=== PATIENT | female | born 1995 | race Caucasian/White ===

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

== ENCOUNTER → 2017-01-18 | Outpatient (CLI) | payer BC | END | disposition home or self-care (01) | LOC: LABWHC1 17:26 | PROVIDERS: ATTEND Obstetrics & Gynecology | DX: Z34.02 Encounter for supervision of normal first pregnancy, second trimester (principal); Z67.90 Unspecified blood type, Rh positive; Z3A.00 Weeks of gestation of pregnancy not specified | CPT/HCPCS: 36415; 82105; 82677; 84702; 86336; 86850; 86900; 86901 ==

== ENCOUNTER 2017-03-09 23:00 | Emergency (ER) | payer BC ==
[2017-03-09] MEDS ORDERED: METOCLOPRAMIDE 5 MG/ML 2 ML VIAL IVP STA (23:23)
[2017-03-09] MEDS ORDERED: ACETAMINOPHEN TAB 325 MG TAB PO STA (23:24)
[2017-03-09] MEDS ORDERED: SODIUM CHLORIDE 0.9% 1,000 ML IV STA (23:33)
--- NOTE | 2017-03-09 23:41 | ED ---
General Adult HPI - General Chief complaint: Back Pain/Injury Stated complaint: back pain/24 weeks Time Seen by Provider: 03/09/17 23:10 Source: patient Mode of arrival: ambulatory Limitations: no limitations - History of Present Illness Initial comments: 21-year-old female patient presents to emergency department today for evaluation of right upper back pain. Patient is 24 weeks . She is . Patient states that she started to have sharp pain around her right shoulder blade yesterday, states that the pain has worsened today and now radiates down her spine with deep breath. Patient states that she also has upper respiratory symptoms including a cough with green sputum production that started a few days ago. Patient says that she has vomited several times today, states that she is occasionally able to keep down small amounts of water however has not been able to eat today. Patient denies any chest pain, dizziness, weakness, shortness of breath, abdominal pain, cramping, constipation , hematemesis, diarrhea, vaginal bleeding, vaginal discharge, hematuria, dysuria , urinary urgency, or urinary frequency. She states that she does have some intermittent bilateral flank pain. Patient was unaware that she had a fever, however was 102.7 F on presentation. - Related Data Home Medications Medication Instructions Recorded Confirmed Rjd-Iurs-Satwy Acid 1 cap PO DAILY 03/09/17 03/09/17 [-U Capsule (formulary)] Previous Rx's Medication Instructions Recorded Nitrofurantoin Monohyd/M-Cryst 100 mg PO Q12HR #14 cap 03/10/17 [Macrobid] Allergies Allergy/AdvReac Type Severity Reaction Status Date / Time No Known Allergies Allergy Verified 03/09/17 23:16 Review of Systems ROS Statement: Those systems with pertinent positive or pertinent negative responses have been documented in the HPI. ROS Other: All systems not noted in ROS Statement are negative. Past Medical History Past Medical History: No Reported History History of Any Multi-Drug Resistant Organisms: None Reported Past Surgical History: No Surgical Hx Reported Past Psychological History: Bipolar Smoking Status: Current every day smoker Past Alcohol Use History: None Reported Past Drug Use History: Marijuana General Exam - General Exam Comments Initial Comments: 21-year-old female patient presented to emergency department today for complaints of cough and right upper back pain. Patient did have a temperature of 102.7 on presentation. Patient has had upper respiratory symptoms for the last 2-3 days. Lab work was performed and did show white blood cell count of 15.8 with a neutrophil count of 14.0. Urine was cloudy, had 1+ protein, 4+ ketones, trace blood, positive nitrates, large amount of leukocyte esterase, 107 white blood cells, 11 squamous epithelial cells, moderate bacteria, and many urine mucus. Patient was given IV Rocephin here in the department, 2 L of normal saline. She was treated with Tylenol for fever. Patient was feeling much better prior to discharge. Vital signs improved. States that her back pain has improved as well. She will be discharged home with a prescription for Macrobid to continue treating the urinary tract infection. Did explain to patient that her back pain was most likely related to pleural pain from acute bronchitis, however given her status and pain in her back there is a possibility for pulmonary embolism. I did explain to rule this out patient would have to have a CT of the chest with contrast. Did explain risks versus benefits including exposure of radiation to the fetus. She refuses test at this time. She is instructed to follow up for repeat urinalysis once the antibiotics are complete to ensure clearance of infection. She is instructed to follow-up with her primary care physician for recheck in 1-2 days. She is instructed to return here immediately for any new, worsening, or concerning symptoms. Patient verbalizes understanding and agrees with this plan. Limitations: no limitations General appearance: alert, in no apparent distress Head exam: Present: atraumatic, normocephalic, normal inspection Eye exam: Present: normal appearance, PERRL, EOMI. Absent: scleral icterus, conjunctival injection, periorbital swelling ENT exam: Present: normal exam, normal oropharynx, mucous membranes moist, TM's normal bilaterally Neck exam: Present: normal inspection, full ROM. Absent: tenderness, meningismus, lymphadenopathy Respiratory exam: Present: normal lung sounds bilaterally. Absent: respiratory distress, wheezes, rales, rhonchi, stridor Cardiovascular Exam: Present: normal rhythm, tachycardia, normal heart sounds. Absent: regular rate, systolic murmur, diastolic murmur, rubs, gallop, clicks GI/Abdominal exam: Present: soft, normal bowel sounds, other (Gravid abdomen). Absent: distended, tenderness, guarding, rebound, rigid Extremities exam: Present: normal inspection, full ROM, normal capillary refill. Absent: tenderness, pedal edema, joint swelling, calf tenderness Back exam: Present: normal inspection. Absent: CVA tenderness (R), CVA tenderness (L) Neurological exam: Present: alert, oriented X3, CN II-XII intact Psychiatric exam: Present: normal affect, normal mood Skin exam: Present: warm, dry, intact, normal color. Absent: rash Course Vital Signs 03/09/17 03/10/17 23:04 01:08 Temperature 102.7 F H 97.4 F L Pulse Rate 130 H 92 Respiratory 22 16 Rate Blood Pressure 130/60 104/52 O2 Sat by Pulse 97 98 Oximetry Medical Decision Making - Lab Data Result diagrams: 03/09/17 23:39 03/09/17 23:39 Lab Results 03/09/17 03/09/17 03/09/17 Range/Units 23:39 23:39 23:39 WBC 15.8 H (4.0-11.0) k/uL RBC 4.02 (3.80-5.40) m/uL Hgb 12.3 (11.4-16.0) gm/dL Hct 36.2 (34.0-46.0) % MCV 90.1 (80.0-100.0) fL MCH 30.6 (25.0-35.0) pg MCHC 34.0 (31.0-37.0) g/dL RDW 13.7 (11.5-15.5) % Plt Count 261 (150-450) k/uL Neutrophils % 89 % Lymphocytes % 6 % Monocytes % 4 % Eosinophils % 0 % Basophils % 0 % Neutrophils # 14.0 H (1.3-7.7) k/uL Lymphocytes # 1.0 (1.0-4.8) k/uL Monocytes # 0.6 (0-1.0) k/uL Eosinophils # 0.0 (0-0.7) k/uL Basophils # 0.0 (0-0.2) k/uL Sodium 136 L (137-145) mmol/L Potassium 3.7 (3.5-5.1) mmol/L Chloride 104 (98-107) mmol/L Carbon Dioxide 20 L (22-30) mmol/L Anion Gap 12 mmol/L BUN 6 L (7-17) mg/dL Creatinine 0.50 L (0.52-1.04) mg/dL Est GFR (MDRD) Af Amer >60 (>60 ml/min/1.73 sqM) Est GFR (MDRD) Non-Af >60 (>60 ml/min/1.73 sqM) Glucose 89 (74-99) mg/dL Plasma Lactic Acid William 1.2 (0.7-2.0) mmol/L Calcium 9.3 (8.4-10.2) mg/dL Total Bilirubin 0.4 (0.2-1.3) mg/dL AST 17 (14-36) U/L ALT 24 (9-52) U/L Alkaline Phosphatase 116 (38-126) U/L Total Protein 7.1 (6.3-8.2) g/dL Albumin 4.0 (3.5-5.0) g/dL Amylase <30 L (30-110) U/L Lipase 54 (23-300) U/L Urine Color Urine Appearance (Clear) Urine pH (5.0-8.0) Ur Specific [place] (1.001-1.035) Urine Protein (Negative) Urine Glucose (UA) (Negative) Urine Ketones (Negative) Urine Blood (Negative) Urine Nitrite (Negative) Urine Bilirubin (Negative) Urine Urobilinogen (<2.0) mg/dL Ur Leukocyte Esterase (Negative) Urine RBC (0-5) /hpf Urine WBC (0-5) /hpf Ur Squamous Epith Cells (0-4) /hpf Urine Bacteria (None) /hpf Urine Mucus (None) /hpf 03/09/17 Range/Units 23:46 WBC (4.0-11.0) k/uL RBC (3.80-5.40) m/uL Hgb (11.4-16.0) gm/dL Hct (34.0-46.0) % MCV (80.0-100.0) fL MCH (25.0-35.0) pg MCHC (31.0-37.0) g/dL RDW (11.5-15.5) % Plt Count (150-450) k/uL Neutrophils % % Lymphocytes % % Monocytes % % Eosinophils % % Basophils % % Neutrophils # (1.3-7.7) k/uL Lymphocytes # (1.0-4.8) k/uL Monocytes # (0-1.0) k/uL Eosinophils # (0-0.7) k/uL Basophils # (0-0.2) k/uL Sodium (137-145) mmol/L Potassium (3.5-5.1) mmol/L Chloride (98-107) mmol/L Carbon Dioxide (22-30) mmol/L Anion Gap mmol/L BUN (7-17) mg/dL Creatinine (0.52-1.04) mg/dL Est GFR (MDRD) Af Amer (>60 ml/min/1.73 sqM) Est GFR (MDRD) Non-Af (>60 ml/min/1.73 sqM) Glucose (74-99) mg/dL Plasma Lactic Acid William (0.7-2.0) mmol/L Calcium (8.4-10.2) mg/dL Total Bilirubin (0.2-1.3) mg/dL AST (14-36) U/L ALT (9-52) U/L Alkaline Phosphatase (38-126) U/L Total Protein (6.3-8.2) g/dL Albumin (3.5-5.0) g/dL Amylase (30-110) U/L Lipase (23-300) U/L Urine Color Yellow Urine Appearance Cloudy H (Clear) Urine pH 6.5 (5.0-8.0) Ur Specific [place] 1.019 (1.001-1.035) Urine Protein 1+ H (Negative) Urine Glucose (UA) Negative (Negative) Urine Ketones 4+ H (Negative) Urine Blood Trace H (Negative) Urine Nitrite Positive H (Negative) Urine Bilirubin Negative (Negative) Urine Urobilinogen <2.0 (<2.0) mg/dL Ur Leukocyte Esterase Large H (Negative) Urine RBC 2 (0-5) /hpf Urine WBC 107 H (0-5) /hpf Ur Squamous Epith Cells 11 H (0-4) /hpf Urine Bacteria Moderate H (None) /hpf Urine Mucus Many H (None) /hpf Disposition Clinical Impression: Urinary tract infection during , Fever Disposition: HOME SELF-CARE Condition: Good Instructions: Acute Bronchitis (ED), Urinary Tract Infection in (ED) Additional Instructions: Increase fluids. Complete antibiotics in full. Follow-up with your primary care physician for recheck in 1-2 days. Have repeat urinalysis performed once antibiotics are complete to ensure clearance of infection. Return here immediately for any new, worsening, or concerning symptoms. Prescriptions: Nitrofurantoin Monohyd/M-Cryst [Macrobid] 100 mg PO Q12HR #14 cap Referrals: Maritza Mccartney MD [Primary Care Provider] - 1-2 days Time of Disposition: 01:58
[2017-03-10 00:11] LABS: Basophils % (A) 0 %; CH 31.9; CHCM 35.6; Eosinophils % (A) 0 %; HCT 36.2 % (34.0-46.0); HDW 2.41; HGB 12.3 gm/dL (11.4-16.0); Luc # (Auto) 0.19; Luc % (Auto) 1; Lymphocytes % (A) 6 %; MCH 30.6 pg (25.0-35.0); MCV 90.1 fL (80.0-100.0); Mean Platelet Volume 7.8; Monocytes # (A) 0.6 k/uL (0-1.0); Monocytes % (A) 4 %; Neutrophils % (A) 89 %; RBC 4.02 m/uL (3.80-5.40); RDW 13.7 % (11.5-15.5); WBC 15.8 k/uL (4.0-11.0); WBC (Perox) 15.19
--- NOTE | 2017-03-10 00:14 | XR ---
EXAM: XR Chest, 2 Views CLINICAL HISTORY: Reason: Pain TECHNIQUE: Frontal and lateral views of the chest. COMPARISON: No relevant prior studies available. FINDINGS: Lungs: Unremarkable. No consolidation. Pleural space: Unremarkable. No pneumothorax. Heart: Unremarkable. No cardiomegaly. Mediastinum: Unremarkable. Bones/joints: Unremarkable. IMPRESSION: Normal chest x-rays.
[2017-03-10 00:18] LABS: Appearance,Urine Cloudy (Clear); Bacteria,Urine Moderate /hpf; Bilirubin,Urine Negative (Negative); Glucose,Urine (UA) Negative (Negative); Ketones,Urine 4+ (Negative); Leukocyte Esterase,Urine Large (Negative); Mucus,Urine Many /hpf; Nitrite,Urine Positive (Negative); PH, Urine 6.5 (5.0-8.0); Particle Count 130391; Protein,Urine 1+ (Negative); RBC,Urine 2 /hpf (0-5); Specific Gravity,Urine 1.019 (1.001-1.035); Squamous Epithelial Cell,Urine 11 /hpf (0-4); UA Billing (MACRO vs. MICRO) MICRO; Urobilinogen,Urine <2.0 mg/dL (<2.0); WBC,Urine 107 /hpf (0-5)
[2017-03-10 00:21] LABS: ALT 24 U/L (9-52); AST 17 U/L (14-36); Alkaline Phosphatase 116 U/L (38-126); Amylase <30 U/L (30-110); Anion Gap 12 mmol/L; Blood Urea Nitrogen 6 mg/dL (7-17); Calcium 9.3 mg/dL (8.4-10.2); Carbon Dioxide 20 mmol/L (22-30); Chloride 104 mmol/L (98-107); Glucose 89 mg/dL (74-99); Non-African American GFR(MDRD) >60 (>60 ml/min/1.73 sqM); Potassium 3.7 mmol/L (3.5-5.1); Sodium 136 mmol/L (137-145); Total Bilirubin 0.4 mg/dL (0.2-1.3); Total Protein 7.1 g/dL (6.3-8.2)
[2017-03-10 01:09] VITALS: BP 104/52; PULSE 92; RESP 16; TEMP 97.4
[2017-03-10] MEDS ORDERED: SODIUM CHLORIDE 0.9% 1,000 ML IV ONE (02:18)
== END 2017-03-10 03:06 | disposition home or self-care (01) ==
LOC: EC 23:00
DX: O23.42 Unspecified infection of urinary tract in pregnancy, second trimester (principal); O99.89 Other specified diseases and conditions complicating pregnancy, childbirth and the puerperium; R05 Cough; O99.332 Smoking (tobacco) complicating pregnancy, second trimester; F17.200 Nicotine dependence, unspecified, uncomplicated; Z3A.24 24 weeks gestation of pregnancy; Z79.899 Other long term (current) drug therapy
CPT/HCPCS: 99284; 96365; 96375; 96361; 36415; 80053; 82150; 83605; 83690; 85025; 81001; 87040; 87086; 87077; 87186; 71020; J2765; J0696

== ENCOUNTER → 2017-04-09 | Outpatient (CLI) | payer BC, OTHER ==
[2017-04-09 14:17] LABS: CH 31.6; CHCM 33.7; HCT 34.6 % (34.0-46.0); HDW 2.48; HGB 11.5 gm/dL (11.4-16.0); MCH 31.3 pg (25.0-35.0); MCHC 33.2 g/dL (31.0-37.0); MCV 94.4 fL (80.0-100.0); Mean Platelet Volume 8.9; RBC 3.67 m/uL (3.80-5.40); RDW 14.3 % (11.5-15.5); WBC 15.4 k/uL (4.0-11.0)
== END | disposition home or self-care (01) ==
LOC: LABWHC1 12:55
PROVIDERS: ATTEND Obstetrics & Gynecology
DX: Z34.02 Encounter for supervision of normal first pregnancy, second trimester (principal)
CPT/HCPCS: 36415; 82950; 85027

== ENCOUNTER 2017-06-21 19:59 | Outpatient (CLI) | payer BC, OTHER ==
[2017-06-21 20:38] VITALS: BP 127/83; PULSE 83; RESP 16; TEMP 97.7
--- NOTE | 2017-07-04 06:14 | P.MSEPDOC ---
Presenting Problems - Arrival Data Date of Arrival on Unit: 06/21/17 Time of Arrival on Unit: 20:05 Mode of Transport: Wheelchair - Complaint OB-Reason for Admission/Chief Complaint: Possible Onset of Labor Medical History - Information : 1 Para: 0 Term: 0 : 0 Abortions: Spontaneous or Elective: 0 Number of Living Children: 0 - Gestational Age Gestational Age by SHAMIKA (wks/days): 40 Weeks and 1 Days - History Complications: Smoker, Hx. Substance Abuse Comment: Smoked weed up until a couple months ago. Review of Systems - Review of Systems Constitutional: No problems Breast: No problems ENT: No problems Cardiovascular: No problems Respiratory: No problems Gastrointestinal: No problems Genitourinary: No problems Musculoskeletal: No problems Neurological: No problems Skin: No problems Vital Signs - Temperature Temperature: 97.7 F Temperature Source: Oral - Pulse Pulse Oximetery Pulse Rate: 83 Pulse Assessment Method: Pulse Oximetry - Respirations Respiratory Rate: 16 O2 Sat by Pulse Oximetry: 97 - Blood Pressure Right Arm Sitting Blood Pressure: 127/83 Blood Pressure Mean: 97 Blood Pressure Source: Automatic Cuff Medical Screen Scoring (Pre) - Cervical Exam Dilation: 4-7 cm = 2 Effacement: More than 50% = 2 Membranes: Intact - Uterine Contractions Frequency: > or = 36 weeks =2 Duration: > 40 seconds = 2 Intensity: N/A - Maternal Vital Signs Maternal Temperature: N/A Maternal Blood Pressure: N/A Signs of Preeclampsia: N/A Maternal Respirations: N/A - Pain Assessment Pain Location and Character: Abdomen Pain Scale Used: Numeric (1 - 10) Pain Intensity: 4 Pain Description: *Acute, Squeezing Pain Radiation Location: none Pain Frequency: Intermittent Pain Duration Units: Minutes Pain Behavior: None Exhibited Pain Aggravating Factors: Contractions Non-Pharmacological Interventions: Emotional/Spiritual Support, Environmental Control, Reduce Environmental Stimuli - Maternal Trauma Maternal Trauma: N/A - Assessment Baseline FHR: 125 Heart Rate - NICHD Category: Category I (Normal) = 0 NST: Reactive Position: N/A Station: N/A - Total Score Total Score (Pre): 8 - Level of Risk Level of Risk: Low (0-5) Medical Screen Scoring (Post) - Cervical Exam Dilation: 4-7 cm = 2 Effacement: More than 50% = 2 Membranes: Intact - Uterine Contractions Frequency: > or = 36 weeks =2 Duration: > 40 seconds = 2 Intensity: N/A - Maternal Vital Signs Maternal Temperature: N/A Maternal Blood Pressure: N/A Signs of Preeclampsia: N/A Maternal Respirations: N/A - Pain Assessment Pain Location and Character: Abdomen Pain Scale Used: Numeric (1 - 10) Pain Intensity: 4 Pain Description: *Acute Pain Frequency: Intermittent Pain Duration Units: Minutes Pain Aggravating Factors: Contractions Non-Pharmacological Interventions: Emotional/Spiritual Support, Environmental Control, Reduce Environmental Stimuli - Maternal Trauma Maternal Trauma: N/A - Assessment Heart Rate: 120 Heart Rate - NICHD Category: Category I (Normal) = 0 NST: Reactive Position: N/A Station: N/A - Total Score Total Score (Post): 8 - Post Treatment Level of Risk Post Treatment Level of Risk: Medium (6-9) Physician Notification (Post) - Physician Notified Physician Notified Date: 06/21/17 Physician Notified Time: 21:20 Physician/Practitioner Notified:: Dr Rivas New Order Received: Yes Disposition - Disposition OB Disposition: Discharge to home, Written follow up instructions reviewed Discharge Date: 06/21/17 Discharge Time: 21:30 I agree with the RN Medical Screening Exam: Yes Risk & Benefit of care provided described in d/c instruction: Yes Diagnosis: FALSE LABOR AT OR AFTER 37 COMPLETED WEEKS OF GESTATION
== END 2017-06-21 21:30 | disposition home or self-care (01) ==
LOC: FBPOP 19:59
PROVIDERS: ATTEND Obstetrics & Gynecology
DX: O47.1 False labor at or after 37 completed weeks of gestation (principal); Z3A.40 40 weeks gestation of pregnancy
CPT/HCPCS: 59025; 99213

== ENCOUNTER 2018-11-23 16:56 | Emergency (ER) | payer BC, OTHER ==
[2018-11-23 17:00] VITALS: BP 113/74; PULSE 79; RESP 16; TEMP 97.6
--- NOTE | 2018-11-23 17:27 | XR ---
Right wrist HISTORY: Trauma and pain 4 views of the right wrist Bone mineralization, joint spaces and alignment are maintained. IMPRESSION: No fracture or dislocation.
--- NOTE | 2018-11-23 17:37 | ED ---
Trauma HPI - General Chief Complaint: Extremity Injury, Upper Stated Complaint: Wrist injury Time Seen by Provider: 11/23/18 17:03 Source: patient Mode of arrival: ambulatory Limitations: no limitations - History of Present Illness Initial Comments: Lay is a previously healthy 23-year-old female who presents the ER for evaluation of right forearm pain. Patient reports that she was attempting to enter her parents house through a window, she slid the window open and put her arm through and the window closed on her arm. She reports immediate pain. She reports full range of motion of her wrist and fingers the pain in her mid forearm with some swelling and bruising. She's been applying ice to the arm while en route to the hospital. - Related Data Home Medications Medication Instructions Recorded Confirmed No Known Home Medications 06/21/17 06/22/17 Allergies Allergy/AdvReac Type Severity Reaction Status Date / Time No Known Allergies Allergy Verified 11/23/18 17:00 Review of Systems ROS Statement: Those systems with pertinent positive or pertinent negative responses have been documented in the HPI. ROS Other: All systems not noted in ROS Statement are negative. Past Medical History Past Medical History: No Reported History History of Any Multi-Drug Resistant Organisms: None Reported Past Surgical History: No Surgical Hx Reported Past Anesthesia/Blood Transfusion Reactions: No Reported Reaction Past Psychological History: Anxiety, Bipolar, Depression Smoking Status: Current every day smoker Past Alcohol Use History: None Reported Past Drug Use History: Marijuana - Past Family History Mother Family Medical History: No Reported History General Exam - General Exam Comments Initial Comments: Physical Exam GENERAL: Patient is well-developed and well-nourished. Patient is nontoxic and well-hydrated and is in no distress. Smells of marijuana HENT: Normocephalic, Atraumatic. EYES: PERRL, EOMI PULMONARY: Unlabored respirations CARDIOVASCULAR: RRR ABDOMEN: Non-distended SKIN: Superficial abrasion to right forearm, contusion and swelling noted : Deferred NEUROLOGIC: Patient is alert and oriented x3. Moving all extremities spontaneously MUSCULOSKELETAL: Normal extremities with adequate strength and full range of motion. No lower extremity swelling or edema. No calf tenderness. PSYCHIATRIC: Normal psychiatric evaluation Limitations: no limitations Course Vital Signs 11/23/18 16:58 Temperature 97.6 F Pulse Rate 79 Respiratory 16 Rate Blood Pressure 113/74 O2 Sat by Pulse 97 Oximetry Medical Decision Making - Medical Decision Making She was seen and evaluated history obtained from the patient x-ray was obtained which revealed no fracture aside patient has a contusion on her forearm approximately 3 cm proximal to the wrist. full range of motion of the wrist and fingers. Patient is neurovascularly intact. She has a contusion on her forearm causing her discomfort, rest, ice, compression and elevation were discussed. Treatment with Motrin and Tylenol were discussed. All questions pertaining care were answered return parameters discussed patient discharged home in stable condition. Disposition Clinical Impression: Contusion of forearm, right Disposition: HOME SELF-CARE Condition: Stable Instructions (If sedation given, give patient instructions): Contusion in Adults (ED) Is patient prescribed a controlled substance at d/c from ED?: No Referrals: Maritza Mccartney MD [Primary Care Provider] - 1-2 days
== END 2018-11-23 17:57 | disposition home or self-care (01) ==
LOC: EC 16:56
DX: S50.11XA Contusion of right forearm, initial encounter (principal); F17.200 Nicotine dependence, unspecified, uncomplicated; W20.8XXA Other cause of strike by thrown, projected or falling object, initial encounter; Y93.89 Activity, other specified; Y92.009 Unspecified place in unspecified non-institutional (private) residence as the place of occurrence of the external cause
CPT/HCPCS: 99283

== ENCOUNTER 2019-02-27 12:10 | Emergency (ER) | payer OTHER ==
[2019-02-27 12:34] VITALS: BP 144/62; PULSE 62; RESP 18; TEMP 98.1
--- NOTE | 2019-02-27 13:25 | ED ---
Female Urogenital HPI - General Chief complaint: Vaginal Bleeding Stated complaint: IUD problem Time Seen by Provider: 02/27/19 12:37 Source: patient Mode of arrival: ambulatory Limitations: no limitations - History of Present Illness Initial comments: 23-year-old female presenting for possible misplacement of her IUD. Patient states she blood 3 days ago she states she has not had a period in a year since the placement of IUD. Patient states she has had some cramping. Patient states she was concerned that her IUD was out of place patient patient states the cramping as well as the bleeding has stopped. She states she has no other concerns she denies pregnancies. Patient presents emergency room for confirmation of placement of IUD. Remaining review of system negative denies any current abdominal pain. Last Menstrual Period: 12/11/18 - Related Data Home Medications Medication Instructions Recorded Confirmed No Known Home Medications 06/21/17 06/22/17 Allergies Allergy/AdvReac Type Severity Reaction Status Date / Time No Known Allergies Allergy Verified 02/27/19 12:34 Review of Systems ROS Statement: Those systems with pertinent positive or pertinent negative responses have been documented in the HPI. ROS Other: All systems not noted in ROS Statement are negative. Past Medical History Past Medical History: No Reported History History of Any Multi-Drug Resistant Organisms: None Reported Past Surgical History: No Surgical Hx Reported Past Anesthesia/Blood Transfusion Reactions: No Reported Reaction Past Psychological History: Anxiety, Bipolar, Depression Smoking Status: Current every day smoker Past Alcohol Use History: None Reported Past Drug Use History: Marijuana - Past Family History Mother Family Medical History: No Reported History General Exam - General Exam Comments Initial Comments: General: The patient is awake and alert, in no distress, and does not appear acutely ill. Eye: +3 mm pupils are equal, round and reactive to light, extra-ocular movements are intact. No nystagmus. There is normal conjunctiva bilaterally. No signs of icterus. Ears, nose, mouth and throat: There are moist mucous membranes and no oral lesions. Neck: The neck is supple, there is no tenderness or JVD. Cardiovascular: There is a regular rate and rhythm. No murmur, rub or gallop is appreciated. Respiratory: Lungs are clear to auscultation, respirations are non-labored, breath sounds are equal. No wheezes, stridor, rales, or rhonchi. Gastrointestinal: Soft, non-distended, non-tender abdomen without masses or organomegaly noted. There is no rebound or guarding present. Musculoskeletal: Normal ROM, no tenderness. Strength 5/5. Sensation intact. Radial pulses equal bilaterally 2+. Neurological: A&O x 3. CN II-XII intact, There are no obvious motor or sensory deficits. Coordination appears grossly intact. Speech is normal. Skin: Skin is warm and dry and no rashes or lesions are noted. Psychiatric: Cooperative, appropriate mood & affect, normal judgment. Limitations: no limitations Course Vital Signs 02/27/19 02/27/19 12:31 14:02 Temperature 98.1 F 98.1 F Pulse Rate 62 62 Respiratory 18 18 Rate Blood Pressure 144/62 144/62 O2 Sat by Pulse 98 98 Oximetry Medical Decision Making - Medical Decision Making 23-year-old presenting for IUD placement. Ultrasound revealed cracked placement of the IUD. Patient is no abdominal pain. No current abdominal pain on exam. Denies any current bleeding. Patient has no current symptoms. Patient appears well. At this time feel patient still for discharge with [employer] follow-up. Patient agreedable with this care plan and discharge at this time. Disposition Clinical Impression: Vaginal bleeding Disposition: HOME SELF-CARE Condition: Good Instructions (If sedation given, give patient instructions): Menstruation (ED) Additional Instructions: Please use medication as discussed. Please follow-up with OBGYN in the next week or two. Please return to emergency room if the symptoms increase or worsen or for any other concerns. Is patient prescribed a controlled substance at d/c from ED?: No Referrals: Maritza Mccartney MD [Primary Care Provider] - 1-2 days Ron Banks DO [Doctor of Osteopathic Medicine] - 1-2 days Time of Disposition: 13:56
--- NOTE | 2019-02-27 13:55 | US ---
EXAMINATION TYPE: US pelvis complete transvag DATE OF EXAM: 02/27/2019 COMPARISON: NONE CLINICAL HISTORY: IUD check. TECHNIQUE: Transvaginal (TV) and Transabdominal (TA) . Transabdominal sonographic images of the pel vis were acquired. Transvaginal sonographic images were medically necessary to better assess the fol lowing anatomy: IUD placement EXAM MEASUREMENTS: Uterus: 7.2 x 3.3 x 4.2 cm Endometrial Stripe: 0.3 cm Right Ovary: 2.4 x 2.1 x 1.9 cm Left Ovary: 2.8 x 2.2 x 2.5 cm 1. Uterus: Anteverted wnl, IUD appears in correct position 2. Endometrium: wnl 3. Right Ovary: wnl, physiologic follicular change 4. Left Ovary: wnl, physiologic follicular change Spectral, color and waveform doppler imaging shows good arterial and venous flow within the ovaries ; there is no evidence for ovarian torsion. 5. Bilateral Adnexa: wnl 6. Posterior cul-de-sac: wnl IMPRESSION: Appropriately placed intrauterine device is central within the endometrium spanning the l ower and upper uterine segments.
== END 2019-02-27 14:10 | disposition home or self-care (01) ==
LOC: EC 12:10
DX: N93.9 Abnormal uterine and vaginal bleeding, unspecified (principal); F17.200 Nicotine dependence, unspecified, uncomplicated; Z30.431 Encounter for routine checking of intrauterine contraceptive device
CPT/HCPCS: 76830; 76856; 93975; 99284

== ENCOUNTER 2020-02-28 21:13 | Emergency (ER) | payer OTHER ==
[2020-02-28 22:10] LABS: Appearance,Urine Clear (Clear); Bacteria,Urine Rare /hpf; Bilirubin,Urine Negative (Negative); Blood,Urine Moderate (Negative); Color,Urine Yellow; Glucose,Urine (UA) Negative (Negative); Ketones,Urine 2+ (Negative); Leukocyte Esterase,Urine Small (Negative); Mucus,Urine Rare /hpf; Nitrite,Urine Negative (Negative); Protein,Urine Negative (Negative); RBC,Urine 102 /hpf (0-5); Specific Gravity,Urine 1.012 (1.001-1.035); Squamous Epithelial Cell,Urine 1 /hpf (0-4); Urobilinogen,Urine <2.0 mg/dL (<2.0); WBC,Urine 3 /hpf (0-5)
[2020-02-28 22:53] LABS: Basophils # (A) 0.1 k/uL (0-0.2); Basophils % (A) 1 %; Eosinophils # (A) 0.1 k/uL (0-0.7); Eosinophils % (A) 1 %; HCT 45.1 % (34.0-46.0); HGB 14.5 gm/dL (11.4-16.0); Lymphocytes % (A) 15 %; MCH 29.3 pg (25.0-35.0); MCHC 32.1 g/dL (31.0-37.0); MCV 91.2 fL (80.0-100.0); Mean Platelet Volume 8.3; Monocytes # (A) 0.6 k/uL (0-1.0); Monocytes % (A) 4 %; Neutrophils # (A) 10.2 k/uL (1.3-7.7); Neutrophils % (A) 77 %; Platelet Count 262 k/uL (150-450); RBC 4.94 m/uL (3.80-5.40); RDW 12.5 % (11.5-15.5); WBC 13.2 k/uL (3.8-10.6)
[2020-02-28 23:03] LABS: ALT 12 U/L (4-34); AST 24 U/L (14-36); African American GFR (CKD) >90 (>60 ml/min/1.73 sqM); Albumin 4.9 g/dL (3.5-5.0); Alkaline Phosphatase 91 U/L (38-126); Anion Gap 12 mmol/L; Blood Urea Nitrogen 7 mg/dL (7-17); Calcium 10.1 mg/dL (8.4-10.2); Carbon Dioxide 22 mmol/L (22-30); Chloride 104 mmol/L (98-107); Glucose 84 mg/dL (74-99); Non-African American GFR(CKD) >90 (>60 ml/min/1.73 sqM); Potassium 4.1 mmol/L (3.5-5.1); Sodium 138 mmol/L (137-145); Total Bilirubin 0.4 mg/dL (0.2-1.3); Total Protein 7.7 g/dL (6.3-8.2)
[2020-02-28 23:04] LABS: Prothrombin Time 10.5 sec (9.0-12.0)
[2020-02-28 23:58] LABS: HCG,Quantitative Serum 24085.3 mIU/mL
--- NOTE | 2020-02-29 00:06 | US ---
EXAMINATION TYPE: Transabdominal DATE OF EXAM: 02/28/2020 11:52 PM COMPARISON: NONE CLINICAL HISTORY: pain. bleeding with EXAM PERFORMED: Transvaginal (TV) and Transabdominal (TA) EXAM MEASUREMENTS: GESTATIONAL AGE / DATING Physician Established: Not yet established Dates by LMP: 01/05/2020 (7 weeks/5 days) EDC: 10/11/2020 Dates by First Scan: No previous this is first scan Dates by Current Scan for: No IUP seen at this time MATERNAL ANATOMY Uterus: 8.7 x 4.7 x 5.8 cm Right Ovary: 3.1 x 2.3 x 2.2 cm Left Ovary: 4.4 x 2.6 x 3.8 cm Post CDS / Adnexa: fluid in cul de sac Presence of free fluid: fluid adjacent to left ovary Presence of corpus luteal cyst: left ovarian cyst measures 3.3 x 1.9 x 3.5 cm. GESTATION / SURVEY MSD: 1.2 cm (5 weeks/2 days) Yolk Sac (normal less than 6mm): 0.4 cm Date of LMP: 01/05/2020 Beta HcG (if available): not available at time of scan. There is a gestational sac seen with an internal yolk sac. The gestational sac measures 5 weeks 2 day s. The gestational sac is slightly irregular shaped and has some internal echoes. This could represen t early developing IUP although other etiologies cannot be excluded at this time. Recommend serial Be ta HcG and follow up ultrasound. IMPRESSION: Intrauterine gestational sac and yolk sac. No adnexal mass. Follow-up recommended in 10-14 days to co nfirm a living fetus of clinically indicated. No evidence of ectopic .
--- NOTE | 2020-02-29 00:10 | ED ---
Female Urogenital HPI - General Chief complaint: Vaginal Bleeding Stated complaint: Poss miscarriage Time Seen by Provider: 02/28/20 21:35 Source: patient Mode of arrival: ambulatory Limitations: no limitations - History of Present Illness Initial comments: 24-year-old female who presents to the emergency department with report of vaginal bleeding. She took a test on the seventh and was found that it was positive. Reports that she is approximately 7 weeks according to her last menstrual cycle. She is Dr. Banks. Has an appointment on the . Reports to morning sickness. Denies any urinary or bowel changes. Denies any abdominal trauma. No abdominal pain. Reports that the bleeding is small and only when she wipes. Denies any dizziness. No vaginal discharge. No concern for sexually transmitted infections. No other alleviating, precipitating or modifying factors - Related Data Home Medications Medication Instructions Recorded Confirmed No Known Home Medications 06/21/17 06/22/17 Allergies Allergy/AdvReac Type Severity Reaction Status Date / Time No Known Allergies Allergy Verified 02/28/20 21:37 Review of Systems ROS Statement: Those systems with pertinent positive or pertinent negative responses have been documented in the HPI. ROS Other: All systems not noted in ROS Statement are negative. Past Medical History Past Medical History: No Reported History History of Any Multi-Drug Resistant Organisms: None Reported Past Surgical History: No Surgical Hx Reported Past Anesthesia/Blood Transfusion Reactions: No Reported Reaction Past Psychological History: Anxiety, Bipolar, Depression Smoking Status: Current every day smoker Past Alcohol Use History: None Reported Past Drug Use History: Marijuana - Past Family History Mother Family Medical History: No Reported History General Exam Limitations: no limitations General appearance: alert, in no apparent distress Head exam: Present: atraumatic, normocephalic, normal inspection Eye exam: Present: normal appearance, PERRL, EOMI. Absent: scleral icterus, conjunctival injection, periorbital swelling ENT exam: Present: normal exam, mucous membranes moist Neck exam: Present: normal inspection. Absent: tenderness, meningismus, lymphadenopathy Respiratory exam: Present: normal lung sounds bilaterally. Absent: respiratory distress, wheezes, rales, rhonchi, stridor Cardiovascular Exam: Present: regular rate, normal rhythm, normal heart sounds. Absent: systolic murmur, diastolic murmur, rubs, gallop, clicks GI/Abdominal exam: Present: soft, normal bowel sounds. Absent: distended, tende rness, guarding, rebound, rigid Extremities exam: Present: normal inspection, full ROM, normal capillary refill. Absent: tenderness, pedal edema, joint swelling, calf tenderness Back exam: Present: normal inspection Neurological exam: Present: alert, oriented X3, CN II-XII intact Psychiatric exam: Present: normal affect, normal mood Skin exam: Present: warm, dry, intact, normal color. Absent: rash Course Vital Signs 02/28/20 02/29/20 21:32 00:20 Temperature 98.4 F 97.6 F Pulse Rate 83 94 Respiratory 18 16 Rate Blood Pressure 115/70 112/75 O2 Sat by Pulse 99 95 Oximetry Medical Decision Making - Medical Decision Making Upon arrival patient is placed into room 25. A thorough history and physical exam was performed. Laboratory studies were obtained. Patient's hemoglobin is 14.5. Beta Quant is 24,085. Ultrasound is performed which demonstrates an intrauterine measured at approximately 5 weeks 2 days. Gestational sac seen. No identifiable heartbeat. At this time the patient will be discharged home. Needs to have repeat beta Quant in 48 hours. Patient is given a prescription for this. Results will be cc to Dr. Banks. She will follow-up with Dr. Banks in 10-14 days to have repeat ultrasound. Return to the emerge ncy department for any new or worsening symptoms. Patient agreed this was discharged in stable condition - Lab Data Result diagrams: 02/28/20 22:44 02/28/20 22:44 Lab Results 02/28/20 02/28/20 02/28/20 Range/Units 21:45 22:44 22:44 WBC 13.2 H (3.8-10.6) k/uL RBC 4.94 (3.80-5.40) m/uL Hgb 14.5 (11.4-16.0) gm/dL Hct 45.1 (34.0-46.0) % MCV 91.2 (80.0-100.0) fL MCH 29.3 (25.0-35.0) pg MCHC 32.1 (31.0-37.0) g/dL RDW 12.5 (11.5-15.5) % Plt Count 262 (150-450) k/uL Neutrophils % 77 % Lymphocytes % 15 % Monocytes % 4 % Eosinophils % 1 % Basophils % 1 % Neutrophils # 10.2 H (1.3-7.7) k/uL Lymphocytes # 2.0 (1.0-4.8) k/uL Monocytes # 0.6 (0-1.0) k/uL Eosinophils # 0.1 (0-0.7) k/uL Basophils # 0.1 (0-0.2) k/uL PT 10.5 (9.0-12.0) sec INR 1.0 (<1.2) APTT 24.0 (22.0-30.0) sec Sodium (137-145) mmol/L Potassium (3.5-5.1) mmol/L Chloride (98-107) mmol/L Carbon Dioxide (22-30) mmol/L Anion Gap mmol/L BUN (7-17) mg/dL Creatinine (0.52-1.04) mg/dL Est GFR (CKD-EPI)AfAm (>60 ml/min/1.73 sqM) Est GFR (CKD-EPI)NonAf (>60 ml/min/1.73 sqM) Glucose (74-99) mg/dL Calcium (8.4-10.2) mg/dL Total Bilirubin (0.2-1.3) mg/dL AST (14-36) U/L ALT (4-34) U/L Alkaline Phosphatase (38-126) U/L Total Protein (6.3-8.2) g/dL Albumin (3.5-5.0) g/dL HCG, Quant mIU/mL Urine Color Yellow Urine Appearance Clear (Clear) Urine pH 7.0 (5.0-8.0) Ur Specific [place] 1.012 (1.001-1.035) Urine Protein Negative (Negative) Urine Glucose (UA) Negative (Negative) Urine Ketones 2+ H (Negative) Urine Blood Moderate H (Negative) Urine Nitrite Negative (Negative) Urine Bilirubin Negative (Negative) Urine Urobilinogen <2.0 (<2.0) mg/dL Ur Leukocyte Esterase Small H (Negative) Urine RBC 102 H (0-5) /hpf Urine WBC 3 (0-5) /hpf Ur Squamous Epith Cells 1 (0-4) /hpf Urine Bacteria Rare H (None) /hpf Urine Mucus Rare H (None) /hpf Blood Type Blood Type Recheck Bld Type Recheck Status 02/28/20 02/28/20 Range/Units 22:44 22:44 WBC (3.8-10.6) k/uL RBC (3.80-5.40) m/uL Hgb (11.4-16.0) gm/dL Hct (34.0-46.0) % MCV (80.0-100.0) fL MCH (25.0-35.0) pg MCHC (31.0-37.0) g/dL RDW (11.5-15.5) % Plt Count (150-450) k/uL Neutrophils % % Lymphocytes % % Monocytes % % Eosinophils % % Basophils % % Neutrophils # (1.3-7.7) k/uL Lymphocytes # (1.0-4.8) k/uL Monocytes # (0-1.0) k/uL Eosinophils # (0-0.7) k/uL Basophils # (0-0.2) k/uL PT (9.0-12.0) sec INR (<1.2) APTT (22.0-30.0) sec Sodium 138 (137-145) mmol/L Potassium 4.1 (3.5-5.1) mmol/L Chloride 104 (98-107) mmol/L Carbon Dioxide 22 (22-30) mmol/L Anion Gap 12 mmol/L BUN 7 (7-17) mg/dL Creatinine 0.47 L (0.52-1.04) mg/dL Est GFR (CKD-EPI)AfAm >90 (>60 ml/min/1.73 sqM) Est GFR (CKD-EPI)NonAf >90 (>60 ml/min/1.73 sqM) Glucose 84 (74-99) mg/dL Calcium 10.1 (8.4-10.2) mg/dL Total Bilirubin 0.4 (0.2-1.3) mg/dL AST 24 (14-36) U/L ALT 12 (4-34) U/L Alkaline Phosphatase 91 (38-126) U/L Total Protein 7.7 (6.3-8.2) g/dL Albumin 4.9 (3.5-5.0) g/dL HCG, Quant 68104.3 mIU/mL Urine Color Urine Appearance (Clear) Urine pH (5.0-8.0) Ur Specific [place] (1.001-1.035) Urine Protein (Negative) Urine Glucose (UA) (Negative) Urine Ketones (Negative) Urine Blood (Negative) Urine Nitrite (Negative) Urine Bilirubin (Negative) Urine Urobilinogen (<2.0) mg/dL Ur Leukocyte Esterase (Negative) Urine RBC (0-5) /hpf Urine WBC (0-5) /hpf Ur Squamous Epith Cells (0-4) /hpf Urine Bacteria (None) /hpf Urine Mucus (None) /hpf Blood Type A Positive Blood Type Recheck A Pos Bld Type Recheck Status No Disposition Clinical Impression: Abnormal vaginal bleeding, Positive test Disposition: HOME SELF-CARE Condition: Stable Instructions (If sedation given, give patient instructions): Threatened Mi scarriage (ED) Additional Instructions: please follow-up in 48 hours to have your blood redrawn. You must have a repeat ultrasound in 10-14 days. Call and make an appointment with Dr. Banks. Return to the emergency room for any new or worsening symptoms Is patient prescribed a controlled substance at d/c from ED?: No Referrals: Maritza Mccartney MD [Primary Care Provider] - 1-2 days Ron Banks DO [Doctor of Osteopathic Medicine] - 1-2 days Time of Disposition: 00:09
[2020-02-29 00:21] VITALS: BP 112/75; PULSE 94; RESP 16; TEMP 97.6
== END 2020-02-29 00:15 | disposition home or self-care (01) ==
LOC: EC 21:13
DX: O20.9 Hemorrhage in early pregnancy, unspecified (principal); O99.331 Smoking (tobacco) complicating pregnancy, first trimester; F17.200 Nicotine dependence, unspecified, uncomplicated; Z3A.01 Less than 8 weeks gestation of pregnancy
CPT/HCPCS: 36415; 76801; 76817; 80053; 81001; 84702; 85025; 85610; 85730; 86900; 86901; 99284

== ENCOUNTER → 2020-03-01 | Outpatient (CLI) | payer OTHER | END | disposition home or self-care (01) | LOC: LABWHC1 10:18 | PROVIDERS: ATTEND Emergency Medicine | DX: O20.0 Threatened abortion (principal); Z3A.00 Weeks of gestation of pregnancy not specified | CPT/HCPCS: 36415; 84702 ==

== ENCOUNTER → 2020-03-18 | Outpatient (CLI) | payer OTHER | END | disposition home or self-care (01) | LOC: LABWHC1 14:13 | PROVIDERS: ATTEND Obstetrics & Gynecology | DX: O20.0 Threatened abortion (principal) | CPT/HCPCS: 36415; 84702; 86900; 86901 ==

== ENCOUNTER 2020-03-22 05:56 | Day surgery (SDC) | payer OTHER ==
[2020-03-19 14:52] VITALS: BMI 20.1
--- NOTE | 2020-03-19 16:39 | P.HPOB ---
History of Present Illness H&P Date: 03/19/20 Chief Complaint: Missed AB versus molar Rosa is a 24-year-old 2 para 1 who has a nonviable based on ultrasound. Her beta-HCG was 45,000 on 917 and an ultrasound revealed no clear sac there was either blood or some other type of products of conception within the uterus measuring 3 cm with the possibility of molar . She has been scheduled for a suction D&C with anticipation to send the products for pathology to rule out molar . Risks/benefits/alternatives to this procedure were reviewed the patient in detail and all questions were answered for her prior to proceeding to the operative room. Past Medical History Past Medical History: No Reported History Additional Past Medical History / Comment(s): missed AB History of Any Multi-Drug Resistant Organisms: None Reported Past Surgical History: No Surgical Hx Reported Past Anesthesia/Blood Transfusion Reactions: No Reported Reaction Additional Past Anesthesia/Blood Transfusion Reaction / Comment(s): no hx of general anesthesia or blood transfusion Smoking Status: Current every day smoker - Past Family History Mother Family Medical History: No Reported History Medications and Allergies Home Medications Medication Instructions Recorded Confirmed Type No Known Home Medications 06/21/17 03/19/20 History Allergies Allergy/AdvReac Type Severity Reaction Status Date / Time No Known Allergies Allergy Verified 03/19/20 14:47 Exam Osteopathic Statement: *. No significant issues noted on an osteopathic structural exam other than those noted in the History and Physical/Consult. Intake and Output 03/19/20 03/19/20 03/19/20 06:59 14:59 22:59 Other: Weight 49.895 kg - OBG Physical Exam Breast: both: normal (no masses) Abdomen: bowel sounds normal, no diffuse tenderness, no bruit present, no guarding noted, no hepatomegaly, no splenomegaly, no mass Vulva: both: normal Vagina: normal moisture, no discharge Cervix: no lesion, no discharge Uterus: normal size, normal contour Adnexa: both: normal Anus/Rectum: normal perianal skin, no rectal mass, no hemorrhoids, heme negative
[~2020-03-22 05:56] MED LIST: Pre Op ABX Message 1 EACH MISC MISCELLANE ONE
[2020-03-22] MEDS ORDERED: DEXAMETHASONE SOD PHOSPHATE 10 MG/ML 1 ML VIAL IV ONE (05:58)
[2020-03-22] MEDS ORDERED: LACTATED RINGERS 1,000 ML IV SCH (05:58)
[2020-03-22] MEDS ORDERED: SCOPOLAMINE 1.5MG/72HR PATCH TRANSDERM ONE (05:58)
[2020-03-22] MEDS ORDERED: ONDANSETRON 4 MG/2 ML VIAL ONE (06:24)
[2020-03-22] MEDS ORDERED: LIDOCAINE 1% (10MG/ML) FOR IV START INTRADERMA ONE (06:33)
[2020-03-22] MEDS ORDERED: MIDAZOLAM 2 MG/2 ML VIAL ONE (06:57)
[2020-03-22] MEDS ORDERED: PROPOFOL 10 MG/ML 20 ML VIAL IV ONE (06:57)
[2020-03-22] MEDS ORDERED: fentaNYL (PF) 50 MCG/ML 2 ML AMP ONE (06:57)
[2020-03-22] MEDS ORDERED: LIDOCAINE 1% INJ 10MG/ML (20 ML MDV) ONE (06:57)
--- NOTE | 2020-03-22 07:27 | P.OP ---
Date of Procedure: 03/22/20 Preoperative Diagnosis: Missed AB/possible molar Postoperative Diagnosis: Same Procedure(s) Performed: Suction D&C Anesthesia: ABBY Surgeon: Ron Banks Estimated Blood Loss (ml): 100 IV fluids (ml): 200 Urine output (ml): 30 Pathology: other (Products of conception) Condition: stable Disposition: same day Operative Findings: Pathology pending Description of Procedure: Patient was taken to the operating suite where a general anesthetic was found be adequate. She was prepped and draped in the normal sterile fashion and placed in dorsal lithotomy position. Initially a weighted speculum was inserted in the vagina and the anterior lip cervix identified grasped with a single-tooth tenaculum. Cervix was then dilated. Once this was accomplished a 9 curved tip suction catheter was inserted uterus and suction was applied. Rotating it clockwise motion tissue was extruded. This was done on 3 occasions and a gentle sharp curettings of endometrium were obtained. All tissue was placed on Telfa and sent to pathology for evaluation. She also be noted that 2 more passes with the suction catheter were done and no bleeding is noted at the conclusion of procedure. All incidents were removed uterus is noted to be atonic and patient was returned taken to the recovery room in stable and satisfactory condition. Sponge, lap, needle counts were all correct 2. Plan - Discharge Summary Discharge Rx Participant: No New Discharge Prescriptions: New Ibuprofen [Motrin] 600 mg PO Q6HR PRN #30 tab PRN Reason: Pain Discharge Medication List Ibuprofen [Motrin] 600 mg PO Q6HR PRN #30 tab 03/22/20 [Rx] Follow up Appointment(s)/Referral(s): Ron Banks DO [Doctor of Osteopathic Medicine] - 1 Week Activity/Diet/Wound Care/Special Instructions: No heavy lifting, limit stairs and driving, and pelvic rest. If any high temperatures, heavy bleeding, or severe pain call my office Discharge Disposition: HOME SELF-CARE
[2020-03-22 07:50] VITALS: TEMP 97.1
[2020-03-22 08:02] VITALS: RESP 16
[2020-03-22 08:26] VITALS: BP 108/73
[2020-03-22 08:45] VITALS: PULSE 90
== END 2020-03-22 08:58 | disposition home or self-care (01) ==
LOC: OR 05:56
PROVIDERS: ATTEND Obstetrics & Gynecology
DX: O02.1 Missed abortion (principal); F17.200 Nicotine dependence, unspecified, uncomplicated
CPT/HCPCS: 88305; 59820; J2250; J1100; J2405; J2001; J3010; J2704

== ENCOUNTER → 2020-10-15 | Outpatient (CLI) | payer OTHER ==
[2020-10-15 16:41] LABS: HCT 38.3 % (34.0-46.0); HGB 13.4 gm/dL (11.4-16.0); MCH 31.8 pg (25.0-35.0); Mean Platelet Volume 7.5; Platelet Count 272 k/uL (150-450); RBC 4.21 m/uL (3.80-5.40); RDW 12.7 % (11.5-15.5)
[2020-10-15 16:49] LABS: African American GFR (CKD) >90 (>60 ml/min/1.73 sqM); Glucose 98 mg/dL (74-99); Non-African American GFR(CKD) >90 (>60 ml/min/1.73 sqM)
[2020-10-16 01:29] LABS: Hepatitis B Surface Antigen Non-Reactive (Non-Reactive)
[2020-10-16 02:57] LABS: HIV 2 AB Non-Reactive (Non-Reactive); HIV AB P24 Non-Reactive (Non-Reactive); HIV P24 AG Non-Reactive (Non-Reactive)
--- NOTE | 2020-10-16 13:12 | US ---
EXAMINATION TYPE: US OB <= 14 wk twins DATE OF EXAM: 10/15/2020 COMPARISON: NONE CLINICAL HISTORY: Z36 confirm dates. early gestation. Positive beta-hCG test. EXAM PERFORMED: OBTA EXAM MEASUREMENTS: GESTATIONAL AGE / DATING Physician Established: Not yet established Dates by LMP: (9 weeks/4 days) EDC: 05/16/2021 Dates by First Scan: No previous this is first scan Dates by Current Scan for Baby A: (9 weeks/3 days) EDC: 05/17/2021 Dates by Current Scan for Baby B: (9 weeks/3 days) EDC: 05/17/2021 MATERNAL ANATOMY Uterus: 9.8 x 6.6 x 7.0cm Right Ovary: 3.5 x 2.2 x 2.5cm Left Ovary: 2.8 x 2.0 x 2.0cm Post CDS / Adnexa: wnl Presence of free fluid: no Presence of corpus luteal cyst: 1.7 x 1.4 x 1.1cm Presence of subchorionic bleed: no Presence of two separate gestational sacs: yes GESTATION / SURVEY TWIN A CRL: 2.6cm (9wks/3days) MSD: wnl Yolk Sac (normal less than 6mm): 0.2cm Heart Rate: 176 bpm Rhythm: Normal IUP: Viable IUP Calvarium seen, 4 limb buds seen, unable to see cord insert due to positioning TWIN B CRL: 2.6cm (9wks/3days) MSD: wnl Yolk Sac (normal less than 6mm): 0.4cm Heart Rate: 172 bpm Rhythm: Normal IUP: Viable IUP Calvarium seen, unable to obtain limbs due to positioning, cord insert seen. Date of LMP: 08/09/2020 Twin live intrauterine gestations identified as distinct separate gestational sac, yolk sac, and feta l poles are identified. No free fluid in pelvic cul-de-sac. Both ovaries seen without suspicious extraovarian adnexal mass. Suspected corpus luteal cyst in right ovary noted image 14. IMPRESSION: Confirmation of dichorionic diamniotic live first trimester twin gestation as detailed ab ove.
== END | disposition home or self-care (01) ==
LOC: RADUSWWP 15:55
PROVIDERS: ATTEND Obstetrics & Gynecology
DX: Z36.87 Encounter for antenatal screening for uncertain dates (principal)
CPT/HCPCS: 36415; 76801; 76802; 82565; 82947; 85027; 86762; 86780; 86850; 86900; 86901; 87340; 87390

== ENCOUNTER 2020-12-02 13:16 | Emergency (ER) | payer OTHER ==
[2020-12-02 13:25] VITALS: TEMP 98.3
[2020-12-02] MEDS ORDERED: SODIUM CHLORIDE 0.9% 1,000 ML IV STA (14:23)
[2020-12-02] MEDS ORDERED: ACETAMINOPHEN TAB 500 MG TAB PO STA (14:23)
[2020-12-02 14:34] LABS: Appearance,Urine Cloudy (Clear); Bacteria,Urine Many /hpf; Bilirubin,Urine Negative (Negative); Blood,Urine Negative (Negative); Color,Urine Yellow; Glucose,Urine (UA) Negative (Negative); Ketones,Urine Negative (Negative); Leukocyte Esterase,Urine Large (Negative); Mucus,Urine Many /hpf; Nitrite,Urine Negative (Negative); PH, Urine 6.5 (5.0-8.0); Protein,Urine Trace (Negative); RBC,Urine 2 /hpf (0-5); Specific Gravity,Urine 1.018 (1.001-1.035); Squamous Epithelial Cell,Urine 3 /hpf (0-4); Urobilinogen,Urine <2.0 mg/dL (<2.0); WBC,Urine 52 /hpf (0-5)
--- NOTE | 2020-12-02 14:39 | ED ---
Abdominal Pain HPI - General Chief Complaint: Abdominal Pain Stated Complaint: 16wks preg/Abd Pain Time Seen by Provider: 12/02/20 14:00 Source: patient Mode of arrival: ambulatory Limitations: no limitations - History of Present Illness Initial Comments: Patient is a 25-year-old female presenting to the emergency Department with complaints of abdominal pain for the past 3 days. Patient is currently 16 weeks with twins. . Her FURS SALESPERSON is Dr. Banks. She had her last follow-up about 1 month ago, has been going along without complications. She states about 3 days ago she noticed some intermittent discomfort along her lower abdomen and it does extend upwards to both sides. She denies any vaginal bleeding, no dysuria. She denies some intermittent nausea but no vomiting, she has been having 2 days of diarrhea. She denies any chest pain or shortness of breath. No fevers or chills. She denies a history of any abdominal surgeries. She states she has been feeling a little bit of movement over the past week. She has no further complaints at this time. Upon arrival to the ER, her vitals are stable. - Related Data Previous Rx's Medication Instructions Recorded Cephalexin [Keflex] 500 mg PO Q6HR 7 Days #28 cap 12/02/20 Allergies Allergy/AdvReac Type Severity Reaction Status Date / Time No Known Allergies Allergy Verified 12/02/20 14:43 Review of Systems ROS Statement: Those systems with pertinent positive or pertinent negative responses have been documented in the HPI. ROS Other: All systems not noted in ROS Statement are negative. Past Medical History Past Medical History: No Reported History Additional Past Medical History / Comment(s): missed AB History of Any Multi-Drug Resistant Organisms: None Reported Past Surgical History: No Surgical Hx Reported Past Anesthesia/Blood Transfusion Reactions: No Reported Reaction Additional Past Anesthesia/Blood Transfusion Reaction / Comment(s): no hx of general anesthesia or blood transfusion Past Psychological History: Anxiety, Bipolar, Depression Smoking Status: Current every day smoker - Past Family History Mother Family Medical History: No Reported History General Exam - General Exam Comments Initial Comments: GENERAL: Patient is well-developed and well-nourished. Patient is nontoxic and in no acute distress. HEAD: Atraumatic, normocephalic. EYES: Pupils equal round and reactive to light, extraocular movements intact, sclera anicteric, conjunctiva are normal. Eyelids were unremarkable. ENT: TMs normal, nares patent, oropharynx clear without exudates. Moist mucous membranes. NECK: Normal range of motion, supple without lymphadenopathy or JVD. LUNGS: Unlabored respirations. Breath sounds clear to auscultation bilaterally and equal. No wheezes rales or rhonchi. HEART: Regular rate and rhythm without murmurs, rubs or gallops. ABDOMEN: Soft, very minor discomfort noted along the entire lower abdomen and along both sides, along her belly. The specific area pain. normoactive bowel sounds. No guarding, no rebound. No masses appreciated. : Deferred MUSCULOSKELETAL: Normal extremities with adequate strength and normal range of motion, no pitting or edema. No clubbing or cyanosis. NEUROLOGICAL: Patient is alert and oriented x 3. Motor and sensory are also intact. Cranial nerves II through XII grossly intact. Symmetrical smile. Normal speech, normal gait. PSYCH: Normal mood, normal affect. SKIN: Warm, Dry, normal turgor, no rashes or lesions noted. Limitations: no limitations Course Vital Signs 12/02/20 12/02/20 12/02/20 13:21 14:50 17:00 Temperature 98.3 F Pulse Rate 105 H 95 89 Respiratory 18 20 20 Rate Blood Pressure 102/60 138/79 134/77 O2 Sat by Pulse 99 100 99 Oximetry Medical Decision Making - Medical Decision Making Patient is a 25-year-old female here with abdominal pain 3 days. She is currently 16 weeks with twins, , F[employer]S SALESPERSON is Dr. Banks. No vaginal bleeding. No fevers. Labs show a slight white count at 14.1, urine shows large amount leukocyte Estrace, WBC clumps, bacteria. Urine culture is pending. Ultrasound today shows no acute abnormalities, twin viable pregnancies. Patient given 1 g of Rocephin here in the ER, we'll continue her on Keflex for a UTI. I recommended following up with her F[employer]S SALESPERSON. She may continue Tylenol as needed for cramps or pain. She is stable for discharge. Return parameters were discussed with her and she verbalized understanding. Case discussed with Dr. Garcia. - Lab Data Result diagrams: 12/02/20 14:43 12/02/20 14:43 Lab Results 12/02/20 12/02/20 12/02/20 Range/Units 13:26 14:43 14:43 WBC 14.1 H (3.8-10.6) k/uL RBC 3.91 (3.80-5.40) m/uL Hgb 12.4 (11.4-16.0) gm/dL Hct 35.2 (34.0-46.0) % MCV 90.0 (80.0-100.0) fL MCH 31.7 (25.0-35.0) pg MCHC 35.2 (31.0-37.0) g/dL RDW 13.0 (11.5-15.5) % Plt Count 240 (150-450) k/uL MPV 8.1 Neutrophils % 86 % Lymphocytes % 8 % Monocytes % 4 % Eosinophils % 1 % Basophils % 0 % Neutrophils # 12.2 H (1.3-7.7) k/uL Lymphocytes # 1.1 (1.0-4.8) k/uL Monocytes # 0.6 (0-1.0) k/uL Eosinophils # 0.1 (0-0.7) k/uL Basophils # 0.0 (0-0.2) k/uL Sodium 135 L (137-145) mmol/L Potassium 3.7 (3.5-5.1) mmol/L Chloride 105 (98-107) mmol/L Carbon Dioxide 23 (22-30) mmol/L Anion Gap 7 mmol/L BUN 7 (7-17) mg/dL Creatinine 0.33 L (0.52-1.04) mg/dL Est GFR (CKD-EPI)AfAm >90 (>60 ml/min/1.73 sqM) Est GFR (CKD-EPI)NonAf >90 (>60 ml/min/1.73 sqM) Glucose 71 L (74-99) mg/dL Calcium 9.5 (8.4-10.2) mg/dL Total Bilirubin 0.2 (0.2-1.3) mg/dL AST 40 H (14-36) U/L ALT 20 (4-34) U/L Alkaline Phosphatase 86 (38-126) U/L Total Protein 6.5 (6.3-8.2) g/dL Albumin 3.7 (3.5-5.0) g/dL Urine Color Yellow Urine Appearance Cloudy H (Clear) Urine pH 6.5 (5.0-8.0) Ur Specific [place] 1.018 (1.001-1.035) Urine Protein Trace H (Negative) Urine Glucose (UA) Negative (Negative) Urine Ketones Negative (Negative) Urine Blood Negative (Negative) Urine Nitrite Negative (Negative) Urine Bilirubin Negative (Negative) Urine Urobilinogen <2.0 (<2.0) mg/dL Ur Leukocyte Esterase Large H (Negative) Urine RBC 2 (0-5) /hpf Urine WBC 52 H (0-5) /hpf Urine WBC Clumps Few H (None) /hpf Ur Squamous Epith Cells 3 (0-4) /hpf Urine Bacteria Many H (None) /hpf Urine Mucus Many H (None) /hpf Blood Type Blood Type Recheck Bld Type Recheck Status 12/02/20 Range/Units 14:45 WBC (3.8-10.6) k/uL RBC (3.80-5.40) m/uL Hgb (11.4-16.0) gm/dL Hct (34.0-46.0) % MCV (80.0-100.0) fL MCH (25.0-35.0) pg MCHC (31.0-37.0) g/dL RDW (11.5-15.5) % Plt Count (150-450) k/uL MPV Neutrophils % % Lymphocytes % % Monocytes % % Eosinophils % % Basophils % % Neutrophils # (1.3-7.7) k/uL Lymphocytes # (1.0-4.8) k/uL Monocytes # (0-1.0) k/uL Eosinophils # (0-0.7) k/uL Basophils # (0-0.2) k/uL Sodium (137-145) mmol/L Potassium (3.5-5.1) mmol/L Chloride (98-107) mmol/L Carbon Dioxide (22-30) mmol/L Anion Gap mmol/L BUN (7-17) mg/dL Creatinine (0.52-1.04) mg/dL Est GFR (CKD-EPI)AfAm (>60 ml/min/1.73 sqM) Est GFR (CKD-EPI)NonAf (>60 ml/min/1.73 sqM) Glucose (74-99) mg/dL Calcium (8.4-10.2) mg/dL Total Bilirubin (0.2-1.3) mg/dL AST (14-36) U/L ALT (4-34) U/L Alkaline Phosphatase (38-126) U/L Total Protein (6.3-8.2) g/dL Albumin (3.5-5.0) g/dL Urine Color Urine Appearance (Clear) Urine pH (5.0-8.0) Ur Specific [place] (1.001-1.035) Urine Protein (Negative) Urine Glucose (UA) (Negative) Urine Ketones (Negative) Urine Blood (Negative) Urine Nitrite (Negative) Urine Bilirubin (Negative) Urine Urobilinogen (<2.0) mg/dL Ur Leukocyte Esterase (Negative) Urine RBC (0-5) /hpf Urine WBC (0-5) /hpf Urine WBC Clumps (None) /hpf Ur Squamous Epith Cells (0-4) /hpf Urine Bacteria (None) /hpf Urine Mucus (None) /hpf Blood Type A Positive Blood Type Recheck A Pos Bld Type Recheck Status No Disposition Clinical Impression: UTI (urinary tract infection) during , Lower abdominal pain Disposition: HOME SELF-CARE Condition: Stable Instructions (If sedation given, give patient instructions): Urinary Tract Infection in (ED) Additional Instructions: Please return to the Emergency Department if symptoms worsen or any other con cerns. Please take antibiotics as prescribed. Follow-up with your [employer] SALESPERSON as discussed. Prescriptions: Cephalexin [Keflex] 500 mg PO Q6HR 7 Days #28 cap Is patient prescribed a controlled substance at d/c from ED?: No Referrals: Maritza Mccartney MD [Primary Care Provider] - 1-2 days Ron Banks DO [Doctor of Osteopathic Medicine] - 1-2 days Time of Disposition: 17:16
[2020-12-02 14:53] VITALS: RESP 20
[2020-12-02 14:55] LABS: Basophils % (A) 0 %; Eosinophils # (A) 0.1 k/uL (0-0.7); Eosinophils % (A) 1 %; HCT 35.2 % (34.0-46.0); HGB 12.4 gm/dL (11.4-16.0); Lymphocytes # (A) 1.1 k/uL (1.0-4.8); Lymphocytes % (A) 8 %; MCH 31.7 pg (25.0-35.0); MCHC 35.2 g/dL (31.0-37.0); Mean Platelet Volume 8.1; Monocytes # (A) 0.6 k/uL (0-1.0); Monocytes % (A) 4 %; Neutrophils # (A) 12.2 k/uL (1.3-7.7); Neutrophils % (A) 86 %; Platelet Count 240 k/uL (150-450); RBC 3.91 m/uL (3.80-5.40); WBC 14.1 k/uL (3.8-10.6)
[2020-12-02 15:07] LABS: ALT 20 U/L (4-34); AST 40 U/L (14-36); African American GFR (CKD) >90 (>60 ml/min/1.73 sqM); Albumin 3.7 g/dL (3.5-5.0); Alkaline Phosphatase 86 U/L (38-126); Anion Gap 7 mmol/L; Blood Urea Nitrogen 7 mg/dL (7-17); Calcium 9.5 mg/dL (8.4-10.2); Carbon Dioxide 23 mmol/L (22-30); Chloride 105 mmol/L (98-107); Glucose 71 mg/dL (74-99); Non-African American GFR(CKD) >90 (>60 ml/min/1.73 sqM); Potassium 3.7 mmol/L (3.5-5.1); Sodium 135 mmol/L (137-145); Total Bilirubin 0.2 mg/dL (0.2-1.3); Total Protein 6.5 g/dL (6.3-8.2)
[2020-12-02] MEDS ORDERED: cefTRIAXone IN SWFI 1,000 MG/10 ML SYRINGE IVP STA (16:41)
[2020-12-02 17:03] VITALS: BP 134/77; PULSE 89
--- NOTE | 2020-12-02 17:05 | US ---
EXAMINATION TYPE: US OB >= 14 wk twins DATE OF EXAM: 12/02/2020 COMPARISON: US CLINICAL HISTORY: abd pain x 3 days, no bleeding. Pelvic pain and right lateral abdomen pain x 3 days , nausea and vomiting; GESTATIONAL AGE / DATING Physician Established: (16 weeks/3 days) EDC: 05/16/2021 Dates by LMP: (16 weeks/3 days) EDC: 07/16/2020 Dates by First Scan: (16 weeks/2 days) EDC: 05/17/2021 Dates by Current Scan for Baby A: (16 weeks/3 days) EDC: 05/16/2021 Dates by Current Scan for Baby B: (16 weeks/5 days) EDC: 05/14/2021 GENERAL TWIN SURVEY TWIN A LOCATION in regards to maternal abd: maternal right inferiorly TWIN B LOCATION in regards to maternal abd: maternal left MEMBRANE SEEN: best seen low in pelvis image #[id number] CERVICAL LENGTH (transabdominal; norm > 3.0cm): 3.6 cm TWIN A: SURVEY/BIOMETRY PLACENTA: anterior PREVIA: No previa SOPHIA:? 13.4 cm?Normal PRESENTATION: Breech LIE: oblique BPD: 3.4 cm 16 weeks / 4 days HC: 12.3 cm 16 weeks / 1 day AC: 10.75 cm 16 weeks / 5 days FL: 2.0 cm 16 weeks / 0 days ESTIMATED WEIGHT IN GRAMS: 151.9 grams ESTIMATED WEIGHT IN LBS/OZ: 0 lbs. 5 oz. WEIGHT PERCENTAGE BASED ON ESTABLISHED DATES: 34.0% HC/AC: 1.14 Normal FL/AC: 18.6 Normal HEART RATE: 151 bpm RHYTHM: Normal TWIN B: SURVEY/BIOMETRY PRESENTATION: Breech LIE: Longitudinal maternal left BPD: 3.6 cm 16 weeks / 6 days HC: 12.86 cm 16 weeks / 4 days AC: 11.09 cm 17 weeks / 0 days FL: 2.05 cm 16 weeks / 1 day ESTIMATED WEIGHT IN GRAMS: 160.16 grams ESTIMATED WEIGHT IN LBS/OZ: 0 lbs. 6 oz. WEIGHT PERCENTAGE BASED ON ESTABLISHED DATES: 49.8% HC/AC: 1.16 Normal FL/AC: 18.45 Normal HEART RATE: 143 bpm RHYTHM: Normal SOPHIA: 20.2 upper limits of normal Viable, Twin gestation noted. IMPRESSION: Twin viable intrauterine pregnancies corresponding for an ultrasound age for twin A 16 we eks 3 days with estimated date of delivery 05/16/2021 and for twin B 16 weeks 5 days with estimated d ate of delivery 05/14/2021
== END 2020-12-02 17:32 | disposition home or self-care (01) ==
LOC: EC 13:16
DX: O23.42 Unspecified infection of urinary tract in pregnancy, second trimester (principal); O99.332 Smoking (tobacco) complicating pregnancy, second trimester; O99.342 Other mental disorders complicating pregnancy, second trimester; F17.200 Nicotine dependence, unspecified, uncomplicated; F41.9 Anxiety disorder, unspecified; F31.9 Bipolar disorder, unspecified; Z3A.16 16 weeks gestation of pregnancy
CPT/HCPCS: 36415; 86900; 86901; 80053; 85025; 81001; 87086; 76805; 76810; 99284; 96374; 96361; J0696

== ENCOUNTER 2021-04-16 17:38 | Emergency (ER) | payer OTHER ==
[2021-04-16 17:44] VITALS: TEMP 98
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
[2021-04-16 18:50] LABS: Appearance,Urine Cloudy (Clear); Bacteria,Urine Rare /hpf; Bilirubin,Urine Negative (Negative); Blood,Urine Large (Negative); Color,Urine Yellow; Glucose,Urine (UA) Negative (Negative); Ketones,Urine Negative (Negative); Leukocyte Esterase,Urine Moderate (Negative); Mucus,Urine Moderate /hpf; Nitrite,Urine Negative (Negative); PH, Urine 5.5 (5.0-8.0); Protein,Urine Trace (Negative); RBC,Urine 7 /hpf (0-5); Squamous Epithelial Cell,Urine 7 /hpf (0-4); Urobilinogen,Urine <2.0 mg/dL (<2.0); WBC,Urine 8 /hpf (0-5)
[2021-04-16 19:04] VITALS: PULSE 78
[2021-04-16 19:56] VITALS: BP 131/67; RESP 18
== END 2021-04-16 20:03 | disposition home or self-care (01) ==
LOC: EC 17:38
DX: N92.6 Irregular menstruation, unspecified (principal); F31.9 Bipolar disorder, unspecified; F17.200 Nicotine dependence, unspecified, uncomplicated
CPT/HCPCS: 81001; 81025; 99284